=== PATIENT | female | born 1995 | race Caucasian/White ===

== ENCOUNTER 2023-09-28 11:48 | Day surgery (SDC) | payer BC ==
[2023-09-28] VITALS (7 sets, daily range): BP systolic 112–152; BP diastolic 50–85; PULSE 51–67; TEMP 97–97.4
[~2023-09-28] VITALS: Ht 160 cm; Wt 58.2 kg
[~2023-09-28 11:48] MED LIST: LR 1,000 ML IV SCH; Meclizine 25 MG TAB PO SCH; Scopolamine 1 MG Delivered 3-Day PATCH TD SCH
[2023-09-28] MEDS ORDERED: Indocyanine Green 12.5 MG in Water For Injection,Sterile 2.5 ML IV ONE (12:30)
[2023-09-28 13:39] LABS: TRICYCLIC ANTIDEPRESS URINE NEGATIVE (NEGATIVE)
[2023-09-28] MEDS ORDERED: fentaNYL 50 MCG/ML 2 ML VIAL ONE (14:14)
[2023-09-28] MEDS ORDERED: HYDROmorphone 2 MG/1 ML VIAL ONE (14:14)
[2023-09-28] MEDS ORDERED: Midazolam 2 MG/2 ML VIAL ONE (14:14)
[2023-09-28] MEDS ORDERED: Rocuronium 50 MG/5 ML Multi-Dose VIAL ONE (14:15)
[2023-09-28] MEDS ORDERED: Ketorolac 30 MG/ML VIAL ONE (14:17)
[2023-09-28] MEDS ORDERED: Ondansetron 4 MG/2 ML VIAL ONE (14:17)
[2023-09-28] MEDS ORDERED: Glycopyrrolate 0.2 MG/ML 1 ML VIAL ONE (14:17)
[2023-09-28] MEDS ORDERED: NS 20 ML IV ONE (14:17)
[2023-09-28] MEDS ORDERED: dexAMETHasone 10 MG/ML VIAL ONE (14:17)
[2023-09-28] MEDS ORDERED: Ondansetron 4 MG/2 ML VIAL IV PRN (14:45)
[2023-09-28] MEDS ORDERED: Meperidine 50 MG/ML 1 ML VIAL IV PRN (14:45)
[2023-09-28] MEDS ORDERED: fentaNYL 50 MCG/ML 1 ML SYRINGE/VIAL [PACU/SDC ONLY] IV PRN (14:45)
[2023-09-28] MEDS ORDERED: HYDROmorphone 1 MG/1 ML SYRINGE [PACU/SDC ONLY] IV PRN (14:45)
--- NOTE | 2023-09-28 14:50 | NUR ---
Pt still waiting to be taken to OR for scheduled surgery. Pt asleep when checking on her at this time. Lying on cart, given another warm blanket and IV remains patent with IVF TKO. Side rails up and call light in reach. Pt denied other needs and acknowledged delay. Pts 2 friends remain in room.
[2023-09-28] MEDS ORDERED: MOTRIN 600600 MG/TAB PO (15:22)
[2023-09-28] MEDS ORDERED: NORCO 325 MG-51 TAB PO (15:22)
--- NOTE | 2023-09-28 15:45 | NUR ---
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
[2023-09-28] MEDS ORDERED: Topical Skin Adhesive 1 EACH (1 ML) TOP ONE (17:06)
--- NOTE | 2023-09-28 18:30 | NUR ---
report received from gilmar carvajal. pt resting in bed watching tv with family at bedside. pt on post op vitals wnl. pt denies pain. abd lap sites x4 well approximated without discharge. call light in reach. all needs met at this time.
--- NOTE | 2023-09-28 19:00 | NUR ---
shift assessment complete, see documentation. pt continues on post op vitals wnl. pt denies pain. pt has voided and eaten without issue. call light in reach. all needs met at this time.
--- NOTE | 2023-09-28 19:30 | NUR ---
discharge instructions provided. pt education given. iv dc'd. f/u appt discussed. medications reviewed. pt denies questions or concerns. pt escorted out with belongings.
== END 2023-09-28 19:30 | disposition home or self-care (01) ==
LOC: SDCO 11:48 → SURG 17:54 → SDCO 19:30
PROVIDERS: Nurse Anesthetist, Certified Registered
DX: K80.10 Calculus of gallbladder with chronic cholecystitis without obstruction (principal); F17.210 Nicotine dependence, cigarettes, uncomplicated
CPT/HCPCS: OP; J0690; J1100; J1170; J1885; J2250; J2405; J2704; J3010; J7120